=== PATIENT | male | born 1965 | race Caucasian/White ===

== ENCOUNTER 2020-11-21 11:51 | Outpatient (REF) | payer OTHER, SELFPAY | END 2020-11-21 11:52 | disposition home or self-care (01) | LOC: HO.LAB 11:51 | PROVIDERS: PCP Family Medicine; Visit Provider Internal Medicine | DX: Z20.822 Contact with and (suspected) exposure to COVID-19 (principal) | CPT/HCPCS: C9803; U0003; U0005 ==

== ENCOUNTER 2020-11-26 12:12 | Outpatient (REF) | payer OTHER, SELFPAY | END 2020-11-26 12:13 | disposition home or self-care (01) | LOC: HO.LAB 12:12 | PROVIDERS: PCP Family Medicine; Visit Provider Internal Medicine | DX: Z20.822 Contact with and (suspected) exposure to COVID-19 (principal) | CPT/HCPCS: C9803; U0003; U0005 ==